=== PATIENT | female | born 1990 | race Caucasian/White ===

== ENCOUNTER 2020-09-04 12:50 | Outpatient (REF) | payer OTHER, SELFPAY ==
--- NOTE | 2020-09-04 13:19 | US_ITS ---
EXAMINATION: MM DIAGNOSTIC DIGITAL BREAST TOMOSYNTHESIS, BILATERAL US DIAGNOSTIC ULTRASOUND BREAST, RIGHT CLINICAL INFORMATION: 30-year-old with area of palpable concern posterior upper outer right breast for 2-3 weeks. Tenderness on palpation. No known family history breast cancer. No prior breast imaging. COMPARISON: None (current study represents initial baseline exam). TECHNIQUE: Digital breast tomosynthesis is performed in both the craniocaudal and mediolateral oblique views along with computer-aided detection (CAD). Synthesized 2D images are generated from the tomosynthesis. Additional bilateral exaggerated CC views are provided. Ultrasound right breast is targeted to the area of clinical concern upper outer quadrant. Grayscale imaging and color Doppler are performed without and with harmonics. Patient is able to directly point to the area of concern at time of imaging. FINDINGS: The breasts are heterogeneously dense, which may obscure small masses (ACR BI-RADS breast composition Category c). There are no significant masses, abnormal calcifications, or other abnormalities. There is no skin thickening or coarsening of the Chacorta's ligaments. The axilla and skin contours are unremarkable. Ultrasound right breast shows no cystic or solid mass or architectural abnormality. There is no focal duct ectasia. No skin thickening or edema tracking in the soft tissue planes. Results are discussed with the patient at time of visit. Patient should be managed based on the clinical impression. If clinically indicated, further evaluation may be considered with surgical consult. Decision to proceed with biopsy should be based on clinical grounds and degree of clinical concern. IMPRESSION: 1. No mammographic evidence of malignancy or inflammatory changes. 2. Unremarkable targeted right breast ultrasound. ASSESSMENT: BI-RADS 1: Negative RECOMMENDATION: 1. Patient should be managed based on the clinical impression. If clinically indicated, further evaluation may be considered with surgical consult. Decision to proceed with biopsy should be based on clinical grounds and degree of clinical concern. 2. Otherwise, routine annual screening mammography, beginning age 40, or earlier as clinical risk factors warrant. This patient's information was entered into a reminder system with a target due date for their next mammogram.
== END 2020-09-04 12:51 | disposition home or self-care (01) ==
LOC: HO.MAMMO 12:50
PROVIDERS: Visit Provider Advanced Practice Midwife
DX: N63.11 Unspecified lump in the right breast, upper outer quadrant (principal)
CPT/HCPCS: 76642; 77062; 77066; 78013

== ENCOUNTER → 2020-09-10 11:19 | Outpatient (BNVA) | payer OTHER, SELFPAY | PROVIDERS: PCP Nurse Practitioner Family; Referring Provider Nurse Practitioner Family; Visit Provider Advanced Practice Midwife | DX: N63.10 Unspecified lump in the right breast, unspecified quadrant (principal); N83.291 Other ovarian cyst, right side; R10.2 Pelvic and perineal pain; Z97.5 Presence of (intrauterine) contraceptive device | CPT/HCPCS: 99213 ==

== ENCOUNTER 2020-11-10 10:35 | Outpatient (REF) | payer OTHER, SELFPAY ==
--- NOTE | 2020-11-10 10:41 | US_ITS ---
EXAMINATION: US PELVIS COMPLETE CLINICAL INFORMATION: Right-sided ovarian cyst. COMPARISON: Ultrasound pelvis 08/17/2020. TECHNIQUE: Routine transabdominal and transvaginal ultrasound of the pelvis is performed. FINDINGS: On transabdominal ultrasound the uterus is anteverted, anteflexed measuring 7.3 cm in length, 2.4 cm AP and 3.6 cm wide. No focal lesion seen. There is an IUD well located within the endometrial canal. Right ovary measures 4.1 x 2.7 x 3.6 cm and volume 20.9 mL. There is a complex anechoic cysts measuring 3.6 x 2.1 x 3.0 cm. There is minimal fluid adjacent to the right ovary. Left ovary measures 2.6 x 1.1 x 1.7 cm and volume 2.6 mL. It appears unremarkable. There is no free fluid in the cul-de-sac. US/US pelvic complete IMPRESSION: Complex cyst right ovary. IUD in correct position within the endometrial canal. Unremarkable left ovary. No free fluid in the cul-de-sac.
--- NOTE | 2020-11-10 10:41 | US_ITS ---
EXAMINATION: US PELVIS COMPLETE CLINICAL INFORMATION: Right-sided ovarian cyst. COMPARISON: Ultrasound pelvis 08/17/2020. TECHNIQUE: Routine transabdominal and transvaginal ultrasound of the pelvis is performed. FINDINGS: On transabdominal ultrasound the uterus is anteverted, anteflexed measuring 7.3 cm in length, 2.4 cm AP and 3.6 cm wide. No focal lesion seen. There is an IUD well located within the endometrial canal. Right ovary measures 4.1 x 2.7 x 3.6 cm and volume 20.9 mL. There is a complex anechoic cysts measuring 3.6 x 2.1 x 3.0 cm. There is minimal fluid adjacent to the right ovary. Left ovary measures 2.6 x 1.1 x 1.7 cm and volume 2.6 mL. It appears unremarkable. There is no free fluid in the cul-de-sac. US/US transvaginal IMPRESSION: Complex cyst right ovary. IUD in correct position within the endometrial canal. Unremarkable left ovary. No free fluid in the cul-de-sac.
== END 2020-11-10 10:36 | disposition home or self-care (01) ==
LOC: HO.US 10:35
PROVIDERS: Visit Provider Advanced Practice Midwife
DX: N83.291 Other ovarian cyst, right side (principal); R10.2 Pelvic and perineal pain
CPT/HCPCS: 76830; 76856

== ENCOUNTER 2020-12-31 13:15 | Outpatient (REF) | payer OTHER, SELFPAY ==
[2021-01-01 06:28] LABS: CA-125 7 U/mL (<35)
== END 2020-12-31 13:16 | disposition home or self-care (01) ==
LOC: HO.LAB 13:15
PROVIDERS: Visit Provider Advanced Practice Midwife
DX: Z30.432 Encounter for removal of intrauterine contraceptive device (principal); Z30.011 Encounter for initial prescription of contraceptive pills; N83.291 Other ovarian cyst, right side
CPT/HCPCS: 36415; 58301; 86304

== ENCOUNTER → 2021-06-12 13:30 | Outpatient (BNVA) | payer OTHER, SELFPAY | PROVIDERS: Visit Provider Advanced Practice Midwife | DX: Z30.41 Encounter for surveillance of contraceptive pills (principal) | CPT/HCPCS: 99212 ==